=== PATIENT | female | born 1980 | race Caucasian/White ===

== ENCOUNTER → 2017-11-27 11:03 | Outpatient (CLI) | payer MEDICAID, SELFPAY ==
--- NOTE | 2017-11-27 11:04 | XR_ITS ---
XR foot wt bearing RT 3V HISTORY: Pain ORDERING PHYSICIAN: Loren Barreto DPM PATIENT AGE: 37 years FINDINGS: No fracture or dislocation. No lytic or blastic change. There is normal mineralization.. The joint spaces are well-preserved. No significant degenerative/arthritic changes. No erosive changes evident. IMPRESSION: Negative, no acute finding
--- NOTE | 2017-11-27 11:04 | XR_ITS ---
XR foot wt bearing LT 3V HISTORY: Foot pain, soft tissue abnormality, ORDERING PHYSICIAN: Loren Barreto DPM PATIENT AGE: 37 years COMPARISON: None FINDINGS: No fracture or dislocation. No lytic or blastic change. There is normal mineralization.. The joint spaces are well-preserved. No significant degenerative/arthritic changes. No erosive changes evident. IMPRESSION: Negative, no acute finding
== END ==
PROVIDERS: PCP Emergency Medicine; Visit Provider Podiatrist
DX: L84 Corns and callosities (principal)
CPT/HCPCS: 73630

== ENCOUNTER → 2018-10-17 09:00 | Outpatient (CLI) | payer OTHER, SELFPAY ==
[2018-10-17 09:29] LABS: Basophils % 0.3 % (0.1-2.0); Eosinophils # 0.2 K/mm3 (0.0-0.4); Eosinophils % 3.3 % (0.1-12.0); Hematocrit 39.8 % (37.0-47.0); Hemoglobin 14.2 g/dL (12.2-16.2); Lymphocytes # 2.3 K/mm3 (0.7-4.5); Mean Corpuscular HGB Conc 35.6 g/dL (31.8-35.4); Mean Corpuscular Hemoglobin 32.8 pg (27.0-31.2); Mean Corpuscular Volume 92.2 fl (81-99); Mean Platelet Volume 7.3 fl (7.4-10.4); Monocytes # 0.3 K/mm3 (0.1-1.0); Monocytes % 4.4 % (1.7-9.3); Neutrophils # 3.9 K/mm3 (1.8-7.8); Neutrophils % 58.1 % (37.0-80.0); Platelet Count 342 K/mm3 (142-424); Red Blood Count 4.32 M/mm3 (4.20-5.40); Red Cell Distribution Width 12.6 % (11.5-17.5); White Blood Count 6.8 K/mm3 (4.8-10.8)
--- NOTE | 2018-10-17 09:30 | US_ITS ---
US OB transvaginal: INDICATION: Early : US OB Dates ORDERING PHYSICIAN: Oswaldo Mandel MD PATIENT AGE: 38 years TECHNIQUE: ultrasound transabdominal scanning. COMPARISON: No previous relevant studies. FINDINGS: Intrauterine gestation A pole well visualized crown-rump length 1.94 cm = 8 weeks 4 days. However no cardiac activity is visualized in this embryo. Given its size and dates we would certainly expect to see heartbeat less findings support demise.. The technologist contacted Dr. Bernal regarding such. Mean Gestational sac size 2.07. = 6 week 5 day With above the Average Ultrasound age 7 weeks 5 days Anticipated Gestational age = 9 weeks 2 days based on LMP 08/13/2018 Yolk sac measures 0.51 cm. . The cervix remains long and closed. Scattered small follicles at both ovariesLargest measures 7 mm at right ovary Right ovary 3.2 x 2.1 x 2.0 centimeter. Left ovary 2.8 x 1.6 x 2.5 cm. ---------IMPRESSION: 8 week 4 day pole is well visualized. However no cardiac activity evident- suggestive of demise. Suggest correlation with serum beta hCG to further support demise. .
[2018-10-17 11:39] LABS: Alanine Aminotransferase 107 U/L (12-78); Albumin Level 3.6 gm/dL (3.4-5.0); Alkaline Phosphatase 76 U/L (46-116); Aspartate Amino Transferase 50 U/L (15-37); Bilirubin,Direct 0.3 mg/dL (0.0-0.2); Bilirubin,Indirect 0.9 mg/dL (0.0-0.9); Bilirubin,Total 1.2 mg/dL (0.2-1.0); Total Protein,Serum 6.9 gm/dL (6.4-8.2)
[2018-10-18 10:15] LABS: HIV Screen 4th Generation wRfx Non Reactive (Non Reactive)
[2018-10-19 10:14] LABS: Rapid Plasma Reagin Ab Titer Non Reactive (NonRea<1:1)
[2018-10-19 10:15] LABS: Hepatitis B Surface Antigen Negative (Negative); Hepatitis C Antibody >11.0 s/co ratio (0.0-0.9); Rubella Antibodies, IgG 3.12 index (Immune >0.99)
[2018-10-21 20:10] LABS: Hepatitis C Genotype 3 (.)
[2018-10-23 16:20] LABS: HCV Genotype Charge YES; Hepatitis C Genotype 3 (.)
== END ==
PROVIDERS: Visit Provider Nurse Practitioner Obstetrics & Gynecology
DX: O26.841 Uterine size-date discrepancy, first trimester (principal); Z34.90 Encounter for supervision of normal pregnancy, unspecified, unspecified trimester; B19.20 Unspecified viral hepatitis C without hepatic coma
CPT/HCPCS: 36415; 76817; 80076; 85025; 86592; 86703; 86762; 86850; 86870; 87340; 87380; 87521; 87522; 87902; G0432

== ENCOUNTER → 2020-12-09 13:36 | Outpatient (CLI) | payer OTHER, SELFPAY | PROVIDERS: Visit Provider Urology | DX: N12 Tubulo-interstitial nephritis, not specified as acute or chronic (principal) | CPT/HCPCS: 87086 ==

== ENCOUNTER → 2021-05-25 11:29 | Outpatient (CLI) | payer OTHER, SELFPAY | PROVIDERS: PCP Family Medicine; Visit Provider Nurse Practitioner | DX: Z20.822 Contact with and (suspected) exposure to COVID-19 (principal); U07.1 COVID-19 | CPT/HCPCS: C9803; U0003; U0005 ==

== ENCOUNTER 2023-09-21 08:38 | Outpatient (CLI) | payer OTHER, SELFPAY ==
--- NOTE | 2023-09-21 08:44 | MM_ITS ---
PROCEDURE INFORMATION: Exam: MG Bilateral Screening 3D Mammography Exam date and time: 09/21/2023 8:31 AM Age: 43 years old Clinical indication: Screening examination TECHNIQUE: Imaging protocol: Bilateral Screening tomosynthesis and 2D mammography including computer-aided detection (CAD) when performed. COMPARISON: No relevant prior studies available. FINDINGS: MAMMOGRAPHY: Breast composition: The breasts are heterogeneously dense, which may obscure small masses. Mass: None. Architectural distortion: None. Calcifications: No suspicious calcifications. Asymmetric density: None. Skin thickening: None. Axillary adenopathy: None. IMPRESSION: No mammographic evidence of malignancy. Annual screening is recommended unless otherwise clinically indicated. ASSESSMENT: BI-RADS Category 1: Negative
== END 2023-09-21 23:59 ==
LOC: RAD 08:38
PROVIDERS: PCP Family Medicine; Visit Provider Family Medicine
DX: Z12.31 Encounter for screening mammogram for malignant neoplasm of breast (principal)
CPT/HCPCS: 77063; 77067

== ENCOUNTER 2023-11-21 07:47 | Outpatient (CLI) | payer OTHER, SELFPAY ==
--- NOTE | 2023-11-21 07:58 | US_ITS ---
FINAL REPORT CLINICAL HISTORY: HEPATITIS C FINDINGS: RIGHT UPPER QUADRANT ULTRASOUND Sonographic images of the right upper quadrant were obtained. The pancreas is partially obscured. There is coarsening of the hepatic echotexture without focal mass. The gallbladder appears normal without evidence of gallstones.The common duct measures 4 mm. Limited images of the right kidney are normal. IMPRESSION: Coarsening of the hepatic echotexture of uncertain significance, may represent fatty liver or cirrhosis. Reviewed, Interpreted and Dictated by Dominguez William III, MD Transcribed by Mary Avelar Authenticated and [facility]
== END 2023-11-21 23:59 | disposition home or self-care (01) ==
LOC: RAD 07:47
PROVIDERS: PCP Family Medicine; Visit Provider Physician Assistant Medical
DX: B19.20 Unspecified viral hepatitis C without hepatic coma (principal)
CPT/HCPCS: 76705

== ENCOUNTER 2024-01-02 12:05 | Outpatient (CLI) | payer OTHER, SELFPAY ==
[2024-01-02 12:32] LABS: Urine Pregnancy, HCG Qual. Negative (Negative)
[2024-01-02 12:47] LABS: Basophils # 0.1 K/mm3 (0-0.2); Basophils % 1.1 % (0.1-2.0); Eosinophils # 0.2 K/mm3 (0.0-0.4); Eosinophils % 2.4 % (0.1-12.0); Hemoglobin 15.8 g/dL (12.2-16.2); Lymphocytes # 3.2 K/mm3 (0.7-4.5); Lymphocytes % 36.3 % (10-50); Mean Corpuscular HGB Conc 33.7 g/dL (31.8-35.4); Mean Corpuscular Hemoglobin 31.4 pg (27.0-31.2); Mean Corpuscular Volume 93.3 fl (81-99); Mean Platelet Volume 8.2 fl (7.4-10.4); Monocytes # 0.4 K/mm3 (0.1-1.0); Monocytes % 4.9 % (1.7-9.3); Neutrophils # 4.8 K/mm3 (1.8-7.8); Neutrophils % 55.2 % (37.0-80.0); Platelet Count 407 K/mm3 (142-424); Red Blood Count 5.03 M/mm3 (4.20-5.40); Red Cell Distribution Width 13.2 % (11.5-17.5); White Blood Count 8.7 K/mm3 (4.8-10.8)
[2024-01-02 12:53] LABS: INR 0.98 (0.9-1.1); Prothrombin Time 10.6 seconds (10.1-12.5)
[2024-01-02 13:19] LABS: Chloride 105 mmol/L (98-107); Potassium 4.3 mmoL/L (3.5-5.1); Sodium 137 mmol/L (136-145)
[2024-01-02 13:22] LABS: Alanine Aminotransferase 19 U/L (12-78); Albumin Level 4.4 g/dl (3.5-5.0); Albumin/Globulin Ratio 1.5 (1.1-1.8); Alkaline Phosphatase 89 U/L (38-126); Anion Gap 11.3 mEq/L (5-15); Aspartate Amino Transferase 28 U/L (14-36); Bilirubin,Total 0.8 mg/dl (0.2-1.3); Blood Urea Nitrogen 15 mg/dl (7-17); Carbon Dioxide 25 mmol/L (22.0-30.0); Estimated Glomerular Filt Rate 69 ml/min (>60); GFR (African American) 83 ML/MIN (>60); Total Protein,Serum 7.4 g/dl (6.3-8.2)
[2024-01-02 13:23] LABS: Calcium 9.4 mg/dl (8.4-10.2); Glucose 89 mg/dl (74-100)
== END 2024-01-02 23:59 | disposition home or self-care (01) ==
LOC: LAB 12:07
PROVIDERS: PCP Family Medicine; Visit Provider Physician Assistant Medical
DX: B18.2 Chronic viral hepatitis C (principal)
CPT/HCPCS: 36415; 80053; 81025; 85025; 85610; 87522

== ENCOUNTER 2024-04-04 10:15 | Emergency (ER) | payer OTHER, SELFPAY ==
[2024-04-04 11:17] VITALS: BP 119/68; PULSE 85; RESP 16; TEMP 36.4; O2SAT 100; BMI 30.7
[2024-04-04 11:40] LABS: UTC Strep Screen (Rapid) Positive (Negative)
--- NOTE | 2024-04-04 11:41 | EXP.UTC ---
Discharge Plan Disposition Patient Disposition: Home, Self-Care Condition: Good Prescriptions Prescriptions: New prednisone 10 mg tablet 10 mg PO BID 3 Days Qty: 6 0RF amoxicillin 875 mg tablet 875 mg PO Q12H Qty: 20 0RF ssakqnohxtaetkj-gwhmryfzo-DJ [Bromfed DM] 2-30-10 mg/5 mL Syrup 5 ml PO Q6H PRN (Reason: Cough) Qty: 240 0RF No Action Mirena 20 mcg/24 hours (5 yrs) 52 mg intrauterine device INTRAUTERI Referrals Follow up/Referrals: Jaspreet Katz MD [Primary Care Provider] - See instructions Activity Restrictions/Add. Instructions Additional Instructions/Restrictions: Drink plenty of fluids. Take tylenol or ibuprofen for pain or fever. Take the medications as directed. Follow up with your regular doctor. GO TO THE ER FOR ANY WORSENING SYMPTOMS Throw your tooth brush away and get a new one. Clinical Impressions Clinical Impression: Strep throat Stand Alone Forms Stand Alone Forms: Work/School Release Instructions Patient Instructions: Strep Throat, DI for Strep Throat Print Language Print Language: Slovak Discharge ED Provider: Clement Hong [facility] [place] General Stated complaint: sore throat, congestion, pain in both ears Mode of Arrival: Ambulatory Source of Information: Patient Limitations: No Limitations Time Seen by Provider: 04/04/24 11:41 Description of Symptoms (Recalled from Triage Doc. by RN): c/o sore throat, congestion and ear pain for 4 days HEENT Symptoms (Recalled from RN notes): Yes Resp Symptoms (Recalled from RN notes): Yes (congestion) Skin Symptoms (Recalled from RN notes): No MS Symptoms (Recalled from RN notes): No Functional Status (Recalled from RN notes): wnl Related Data Home Medications ?Medication ?Instructions ?Recorded ?Confirmed levonorgestrel 21 mcg/24 hr (up to intrauterine 07/24/19 10/16/23 8 years) 52 mg intrauterine device (Mirena) Previous Rx's ?Medication ?Instructions ?Recorded amoxicillin 875 mg tablet 875 mg PO Q12H #20 tabs 04/04/24 yiljaxnmftaelkv-kbgatejalyyrerh-PW 5 ml PO Q6H PRN Cough #240 mL 04/04/24 2 mg-30 mg-10 mg/5 mL oral syrup (Bromfed DM) prednisone 10 mg tablet 10 mg PO BID 3 days #6 tabs 04/04/24 Allergies Allergy/AdvReac Type Severity Reaction Status Date / Time No Known Allergies Allergy Verified 10/16/23 13:29 Worker's Comp Is this a Worker's Comp case?: No PFSH [facility] Disclaimer: The information contained in this section may have been updated after the patient was seen, as this information can be updated by other users. Medical History (Updated 04/04/24 @ 11:50 by Clement Hong APRN) Hepatitis C Surgical History (Updated 10/16/23 @ 13:36 by GLORY Pino) Hx of dilation and curettage Hx of wisdom tooth extraction History of surgery on right wrist Hx of tonsillectomy Family History (Updated 10/16/23 @ 13:36 by GLORY Pino) Other Hypertension Social History (Updated 10/16/23 @ 13:37 by GLORY Pino) Smoking Status: Current every day smoker tobacco type: e-cigarettes second hand exposure: Yes alcohol intake: never substance use type: former substance user current occupational status: employed and other Travel in the last 8 weeks: None household members: spouse housing: house current occupational exposures/hazards: No caffeine: Yes ROS Obtained: Yes All systems reviewed & no additional complaints except as documented Constitutional Constitutional: Reports chills and Reports fever(s) Eyes Eyes: Denies eye discharge ENT Ears, Nose, Mouth, and Throat: Reports as per HPI Cardiovascular Cardiovascular: Denies chest pain Respiratory Respiratory: Denies chest congestion and Reports cough Gastrointestinal Gastrointestingal: Reports nausea; Denies abdominal pain, constipation, cramping, diarrhea or vomiting Musculoskeletal Musculoskeletal: Denies art
[2024-04-04 11:53] VITALS: BP 119/68; PULSE 85; RESP 18; TEMP 36.4; O2SAT 100
== END 2024-04-04 11:55 | disposition home or self-care (01) ==
PROVIDERS: Emergency Provider Nurse Practitioner Family; PCP Family Medicine
DX: J02.0 Streptococcal pharyngitis (principal); H92.03 Otalgia, bilateral; R09.81 Nasal congestion
CPT/HCPCS: 87880; 99212; 99214; G0463

== ENCOUNTER 2025-01-02 10:53 | Outpatient (CLI) | payer OTHER, SELFPAY ==
[2025-01-02 15:15] LABS: Coronavirus 19, PCR Not Detected (NotDetected); Human Rhinovirus Not Detected (NotDetected); Influenza A, PCR Not Detected (NotDetected); Influenza B, PCR Not Detected (NotDetected); Respiratory Syncytial Virus Not Detected (NotDetected)
== END 2025-01-02 23:59 | disposition home or self-care (01) ==
LOC: LAB.DROPOF 01-06 10:55
PROVIDERS: PCP Family Medicine; Visit Provider Nurse Practitioner
DX: J02.9 Acute pharyngitis, unspecified (principal)
CPT/HCPCS: 87631